=== PATIENT | female | born 1950 | race African-American/Black ===

== ENCOUNTER 2018-08-10 15:40 | Emergency (ER) | payer OTHER, SELFPAY ==
--- NOTE | 2018-08-10 15:59 | CT ---
CT BRAIN PERFORMED WITHOUT CONTRAST ENHANCEMENT: Date: 08/10/18 HISTORY: Stroke symptoms, left-sided facial numbness, slurred speech. FINDINGS: Ventricular and cisternal system is within normal limits. There are no signs of intracerebral hemorrh age or extra-axial fluid collections. Mastoid air cells and visualized sinuses are clear. IMPRESSION: No acute intracranial abnormalities. Findings telephoned to the [facility] at 1556 hours. CODE CR. POS: [facility]
[2018-08-10 16:05] LABS: #Basophils 0.1 thou/uL (0.0-0.2); #Eosinphils 0.2 thou/uL (0.0-0.7); #Lymphocytes 1.8 thou/uL (1.20-3.40); #Monocytes 0.5 thou/uL (0.11-0.59); #Neutrophils 2.5 thou/uL (1.40-6.50); %Basophils 1.2 % (0.0-1.0); %Eosinophils 3.9 % (0.0-10.0); %Lymphocytes 36.4 % (21.0-51.0); %Monocytes 9.5 % (0.0-10.0); Hemoglobin 11.9 g/dL (12.0-16.0); Mean Corpuscular HGB CONC 30.7 g/dL (32.0-36.0); Mean Corpuscular Hemoglobin 26.5 pg (27.0-31.0); Mean Corpuscular Volume 86.2 fL (78.0-98.0); Mean Platelet Volume 6.8 fL (7.4-10.4); Platelet Count 231 thou/uL (130-400); RBC Distribution Width 12.4 % (11.5-14.5); Red Blood Cell (RBC) Count 4.51 mill/uL (4.20-5.40)
[2018-08-10 16:14] LABS: INR-International Normal Ratio 1.2; Prothrombin Time 15.2 SEC (12.0-14.7)
[2018-08-10 16:22] LABS: ALT (SGPT) 27 U/L (8-55); AST (SGOT) 22 U/L (5-34); Albumin 4.2 g/dL (3.4-4.8); Alkaline Phosphatase 73 U/L (40-150); Anion Gap 14 mmol/L (10-20); BUN (Urea Nitrogen) 15 mg/dL (9.8-20.1); Bilirubin, Total 0.7 mg/dL (0.2-1.2); Calc. Creatinine Clearance 0 mL/min (70-130); Calcium 10.3 mg/dL (7.8-10.44); Carbon Dioxide 25 mmol/L (23-31); Chloride 107 mmol/L (98-107); Estimated GFR-MDRD 72; Globulin 2.9 g/dL (2.4-3.5); Glucose 111 mg/dL (80-115); Potassium 3.5 mmol/L (3.5-5.1); Protein, Total 7.1 g/dL (6.0-8.3); Sodium 142 mmol/L (136-145)
--- NOTE | 2018-08-10 16:49 | CT ---
CT ANGIO OF HEAD AND NECK PERFORMED WITH INTRAVENOUS CONTRAST ENHANCEMENT WITH 3D RECONSTRUCTIONS: 08/10/18 HISTORY: Left sided facial droop, slurred speech. The lung apices are clear of any infiltrative process. Thyroid gland is unremarkable. No significant jugular chain adenopathy. The parotid and submandibular glands appear normal. Parapharyngeal spaces a re clear. The angiographic portion of this examination yielded a fairly satisfactory examination. The vertebral arteries appear codominant. There is a separate origin of the left common carotid artery from the ao rtic arch. The proximal common carotid arteries are very tortuous. The right common carotid, internal and external carotid arteries are patent. There is no significant stenosis by NASCET criteria. On the left side, there is also no evidence of any significant stenosis of the internal carotid arter y. CT ANGIO OF HEAD PERFORMED WITH INTRAVENOUS CONTRAST ENHANCEMENT WITH 3D RECONSTRUCTIONS: The basilar artery is tortuous. Posterior cerebral arteries appear intact. The anterior middle cerebr al arteries show no areas of any significant stenosis within the A1, A2, M1 or M2 segments. I do not see any intraluminal thrombus. Slightly better filling of the left parasylvian vessels as compared t o the right, but this may just be related to rotation. IMPRESSION: Unremarkable CT angio of head and neck. Findings telephoned to Dr. Paulson at 1616 hours. POS: [facility]
== END 2018-08-10 16:45 | disposition short-term general hospital (02) ==
LOC: EDBD 15:40 → NAV ERS 15:40
DX: I63.9 Cerebral infarction, unspecified (principal); E78.5 Hyperlipidemia, unspecified; J45.909 Unspecified asthma, uncomplicated; F41.9 Anxiety disorder, unspecified; I10 Essential (primary) hypertension; G51.0 Bell's palsy; Z79.899 Other long term (current) drug therapy; Z79.82 Long term (current) use of aspirin; Z86.73 Personal history of transient ischemic attack (TIA), and cerebral infarction without residual deficits
CPT/HCPCS: 0042T; 70450; 70496; 80053; 84484; 85025; 85610; 85730; 93005; 94760